=== PATIENT | female | born 1950 | race Caucasian/White ===

== ENCOUNTER 2019-12-13 17:54 | Emergency (ER) | payer MEDICARE ==
[2019-12-13 18:14] VITALS: BP 128/79
--- NOTE | 2019-12-13 18:36 | UC ---
Complaint Female HPI - HPI Summary HPI Summary: Per RN traige: "Onset this afternoon with urinary pain and burning with urination, low abdominal discomfort. No back pain or fever." -she has had UTIs in past and sx are consistent. she is confident that it is UTI -no f/c/body aches. no hematuria. no known kidney stones -doesnt reacll last abx use. denies kindey disease. NKDA - History Of Current Complaint Chief Complaint: UCGU Stated Complaint: URINARY Time Seen by Provider: 12/13/19 18:17 Pain Intensity: 4 - Allergies/Home Medications Allergies/Adverse Reactions: Allergies Allergy/AdvReac Type Severity Reaction Status Date / Time No Known Allergies Allergy Verified 12/13/19 18:07 Home Medications: Home Medications Cephalexin CAP* [Keflex CAP*] 500 mg PO TID 10 Days #30 cap 12/13/19 [Rx] PMH/Surg Hx/FS Hx/Imm Hx Previously Healthy: Yes - Surgical History Surgical History: Yes Surgery Procedure, Year, and Place: right total knee - Family History Known Family History: Positive: Other - no kidney stone - Social History Alcohol Use: Occasionally Substance Use Type: None Smoking Status (MU): Never Smoked Tobacco Review of Systems All Other Systems Reviewed And Are Negative: Yes Constitutional: Positive: Negative. Negative: Fever, Chills, Fatigue Skin: Positive: Negative. Negative: Rash Eyes: Positive: Negative ENT: Positive: Negative Respiratory: Positive: Negative Cardiovascular: Positive: Negative Gastrointestinal: Positive: Negative. Negative: Vomiting, Diarrhea, Nausea Genitourinary: Positive: Dysuria, Frequency Motor: Positive: Negative Neurovascular: Positive: Negative Musculoskeletal: Positive: Negative Neurological/Mental Status: Positive: Negative Psychological: Positive: Negative Is Patient Immunocompromised?: No Physical Exam Triage Information Reviewed: Yes Appearance: Well-Appearing, No Pain Distress, Well-Nourished - very pleasant Vital Signs: Initial Vital Signs Temp 98 F 12/13/19 18:08 Pulse 87 12/13/19 18:08 Resp 17 12/13/19 18:08 BP 128/79 12/13/19 18:08 Pulse Ox 97 12/13/19 18:08 Eye Exam: Normal ENT Exam: Normal Neck exam: Normal Neck: Positive: Supple Respiratory Exam: Normal Respiratory: Positive: Lungs clear, Normal breath sounds, No respiratory distress, No accessory muscle use Cardiovascular Exam: Normal Cardiovascular: Positive: RRR Abdominal Exam: Normal Abdomen Description: Positive: Soft, Other: - mild suprapubic tenderness. Negative: CVA Tenderness (R), CVA Tenderness (L), Distended, Guarding, McBurney' s Point Tenderness, Peritoneal Signs, Pulsatile Mass Musculoskeletal Exam: Normal Neurological Exam: Normal Psychological Exam: Normal Skin Exam: Normal Complaint Female Dx - Course Course Of Treatment: + UA + blood, + LE. neg nitrites -explianed importance of f/u UA s/p abx to assure blood has cleared. she v.u and agreeable. -keflex 500msg tid, disc potential SEs to watch for - Differential Dx/Diagnosis Differential Diagnosis/HQI/PQRI: Ureteral Stone, Urinary Tract Infection Provider Diagnosis: Dysuria Discharge ED - Sign-Out/Discharge Documenting (check all that apply): Patient Departure All imaging exams completed and their final reports reviewed: No Studies - Discharge Plan Condition: Stable Disposition: HOME Prescriptions: Cephalexin CAP* [Keflex CAP*] 500 mg PO TID 10 Days #30 cap Patient Education Materials: Urinary Tract Infection in Women (ED) Referrals: Melanie Johnson MD [Primary Care Provider] - 2 Weeks Additional Instructions: Please make sure to follow up for the blood in the urine after you have finished the antibiotic. -It is recommended that you take a probiotic daily while you are on antibiotics. A few common brands that you can buy over the counter are colon health, align and florastor. These can help prevent a colon infection called c diff that can be associated with antibiotic use. -Follow up sooner if your symptoms worsen or persist. -If there is resistance to the keflex, you should get a call from us in 2-3 days to change the antibiotic. - Billing Disposition and Condition Condition: STABLE Disposition: Home
== END 2019-12-13 19:00 | disposition home or self-care (01) ==
LOC: UCCORT 17:54
DX: R30.0 Dysuria (principal); R19.8 Other specified symptoms and signs involving the digestive system and abdomen
CPT/HCPCS: 81003; 87077; 87086; 87186; 99202; G0463